=== PATIENT | female | born 1980 | race Caucasian/White ===

== ENCOUNTER → 2024-03-04 07:45 | Outpatient (REF) | payer OTHER, SELFPAY | LOC: EMG 07:45 | PROVIDERS: ATTENDING PHYSICIAN Nurse Practitioner | DX: M79.602 Pain in left arm (principal); R20.0 Anesthesia of skin | CPT/HCPCS: 95886; 95909 ==

== ENCOUNTER → 2024-06-26 12:47 | Outpatient (REF) | payer OTHER, SELFPAY | LOC: HWWDC 12:47 | PROVIDERS: ATTENDING PHYSICIAN Nurse Practitioner Adult Health; FAMILY PHYSICIAN Internal Medicine | DX: Z12.31 Encounter for screening mammogram for malignant neoplasm of breast (principal) | CPT/HCPCS: 77063; 77067 ==

== ENCOUNTER → 2024-12-11 16:58 | Outpatient (REF) | payer OTHER, SELFPAY | LOC: RAD 16:58 | PROVIDERS: ATTENDING PHYSICIAN Nurse Practitioner; FAMILY PHYSICIAN Internal Medicine | DX: L98.9 Disorder of the skin and subcutaneous tissue, unspecified (principal) | CPT/HCPCS: 93971 ==

== ENCOUNTER 2025-06-23 06:25 | Day surgery (SDC) | payer OTHER, SELFPAY | END 2025-06-23 14:52 | disposition home or self-care (01) | LOC: GI 06:25 | PROVIDERS: ATTENDING PHYSICIAN Internal Medicine Gastroenterology; FAMILY PHYSICIAN Internal Medicine | DX: K51.20 Ulcerative (chronic) proctitis without complications (principal); K57.30 Diverticulosis of large intestine without perforation or abscess without bleeding; K62.89 Other specified diseases of anus and rectum; K64.8 Other hemorrhoids | CPT/HCPCS: 45380; 88305 ==

== ENCOUNTER → 2025-07-09 14:48 | Outpatient (REF) | payer OTHER, SELFPAY | LOC: WDC 14:48 | PROVIDERS: ATTENDING PHYSICIAN Nurse Practitioner Adult Health; FAMILY PHYSICIAN Internal Medicine | DX: Z12.31 Encounter for screening mammogram for malignant neoplasm of breast (principal) | CPT/HCPCS: 77063; 77067 ==

== ENCOUNTER 2025-09-14 17:41 | Day surgery (SDC) | payer OTHER, SELFPAY ==
[2025-09-14] VITALS (11 sets, daily range): BP systolic 113–126; BP diastolic 77–92; BMI 25.7; BMI 24.4
--- NOTE | 2025-09-14 12:23 | ED.GENMED ---
History of Present Illness
<Roseann Perry ALGEBRA TEACHER - Last Filed: 09/14/25 17:11>
General
Chief Complaint: Abdominal Symptoms
Source: patient
Exam Limitations: none
Time Seen by Provider: 09/14/25 12:21
Nursing documentation reviewed up to this point in time: agreed with
History of Present Illness
History of Present Illness:
45-year-old female with history of colitis, proctitis, (per patient last colonoscopy 06/20 was 'clear.' ), uterine fibroids presents for abdominal pain. She states 2 nights ago abdominal pain was constant and from her navel to the right side of her
abdomen associated with a lot of gas and bloating, she did not sleep well that night due to her symptoms. She had several bowel movements that night and by yesterday morning the pain was better but her appetite was poor. She had a residual 'mild
pressure' discomfort in the right lower quadrant with intermittent fleeting sharp shooting pains. She had no significant pain all day yesterday just a mild pressure in the right lower quadrant. This morning she ate yogurt and the fleeting sharp
pains from her bellybutton to the right side of her abdomen started up again and she still has a 'pressure' in the right lower quadrant. She is currently menstruating, started 4 days ago. She denies fever or chills. Denies N/V/D.
Past History
<Roseann Perry ALGEBRA TEACHER - Last Filed: 09/14/25 17:11>
Past History
ED Past Medical History: Other (Migraines, colitis, uterine fibroids, proctitis)
Social History
Tobacco: Non-smoker
Personal: Single
Living: with family
Employment: Employed (Teacher)
Review of Systems
<Roseann Perry ALGEBRA TEACHER - Last Filed: 09/14/25 17:11>
Review of Systems
Allergies reviewed?: Yes
All Other Systems: ROS reviewed and negative except as documented in HPI and ROS
Respiratory: Reports other (Has had nasal stuffiness and mild URI with sinus headache for the past 3 days, headache is relieved with Tylenol.)
Musculoskeletal: Reports other (She is followed by rheumatology for 'random pains' workup negative so far and has no diagnosis yet)
Phy Exam
<Roseann Perry, ALGEBRA TEACHER - Last Filed: 09/14/25 17:11>
Physical Exam
Physical Exam:
GENERAL: No acute distress. A&Ox3.
CONSTITUTIONAL: Afebrile.
EYES: clear, conjunctivae normal
ENMT: moist mucus membranes, Pharynx nl
RESPIRATORY: Regular respirations, nonlabored, lungs clear.
CARDIOVASCULAR: Regular rate and rhythm, no murmurs, no rubs.
GI: Soft, tender to palpate right lower quadrant. Nondistended, normal BS
MUSCULOSKELETAL: Moves with ease. Well perfused.
SKIN: Warm, dry, pink
PSYCH: Normal mood and affect. Well kept, interactive and appropriate
NEUROLOGIC: Awake, alert and oriented. No focal neurological deficits
Course
<Roseann Perry, ALGEBRA TEACHER - Last Filed: 09/14/25 17:11>
Orders/Labs/Results
Orders:
Orders
09/14/25 12:19
Test Result ONCE
09/14/25 12:27
CMP [Comprehensive Metabolic Panel] Urgent
Complete Blood Count/With Diff Urgent
HCG, Serum Qualitative Screen Urgent
Lipase Urgent
09/14/25 12:37
CT Abd/pel W Iv And Oral Contr Urgent
Comment:
Reason For Exam: R abd pain. Hx colitis, proctitis, uterine fibroid
Iohexol [Omnipaque] See Protocol PO NOW STA
09/14/25 12:38
0.9% Sodium Chloride 1000 ml [Nss] 1,000 ml IV BOLUS
09/14/25 12:49
Urinalysis Reflex To Culture Urgent
Date Specimen was Collected: 09/14/25
Time Specimen was Collected: 12:40
Urine Microscopic Reflex Cult Urgent
09/14/25 16:18
Ketorolac [Toradol] 15 mg IV NOW STA
09/14/25 17:06
Admit/Transfer Patient As Directed
Co-Sign Provider:
Level of Care: Observation services
Assign to:: Medical/Surgical
Physician / Group: Juan
Diagnosis: Acute appendicitis
09/14/25 17:07
PRN Pain Medication Management As Directed
May give lesser potent ordered pain med per pt: Yes
preference::
Protocol:: Medication orders for pain may be administered in a
manner that supports deferring to patient preference
when the pt is:
- Requesting an ordered lesser potent pain medication.
Least to most potent pain medications are defined
as: acetaminophen < NSAID < tramadol < opioids
(morphine, oxycodone, hydromorphone).
- Requesting a lesser dose of the same medication IF
ORDERED.
- Requesting a less intrusive route of administration
if both routes are prescribed by the provider (PO <
IV).
09/14/25 17:10
Piperacillin/Tazo 3.375 Gram [Zosyn] 3.375 gram in 50 ml IV NOW
Abnormal Lab Results
09/14/25 09/14/25
12:27 12:49
Absolute Lymphs (auto) 0.0 L 10^3/uL
(1.2-3.4)
Neutrophils % 91.5 H %
(42.2-75.2)
Lymphocytes % 0.8 L %
(20.5-51.1)
Sodium 134 L mmol/L
(135-145)
Glucose 102 H mg/dl
(70-99)
Urine Ketones 1+ A
(Negative)
Ur Occult Blood Reflex 4+ A
(Negative)
Urine RBC >100 A /HPF
(0-2)
Urine Albumin (Reflex) 1+ A
(Neg - Trace)
09/14/25 12:27
09/14/25 12:27
Vital Signs
Initial and Last Documented VS:
Initial Vital Signs
Temp Pulse Resp BP Pulse Ox
99.7 F 114 18 121/85 96
09/14/25 11:28 09/14/25 11:28 09/14/25 11:28 09/14/25 11:28 09/14/25 11:28
Last Documented Vital Signs
Temp Pulse Resp BP Pulse Ox
98.8 F 108 18 124/82 98
09/14/25 16:32 09/14/25 16:32 09/14/25 16:32 09/14/25 16:32 09/14/25 16:32
<Juan Manuel Phillips, DO - Last Filed: 09/14/25 16:19>
Orders/Labs/Results
Orders:
Orders
09/14/25 12:19
Test Result ONCE
09/14/25 12:27
CMP [Comprehensive Metabolic Panel] Urgent
Complete Blood Count/With Diff Urgent
HCG, Serum Qualitative Screen Urgent
Lipase Urgent
09/14/25 12:37
CT Abd/pel W Iv And Oral Contr Urgent
Comment:
Reason For Exam: R abd pain. Hx colitis, proctitis, uterine fibroid
Iohexol [Omnipaque] See Protocol PO NOW STA
09/14/25 12:38
0.9% Sodium Chloride 1000 ml [Nss] 1,000 ml IV BOLUS
09/14/25 12:49
Urinalysis Reflex To Culture Urgent
Date Specimen was Collected: 09/14/25
Time Specimen was Collected: 12:40
Urine Microscopic Reflex Cult Urgent
09/14/25 16:18
Ketorolac [Toradol] 15 mg IV NOW STA
09/14/25 17:06
Admit/Transfer Patient As Directed
Co-Sign Provider:
Level of Care: Observation services
Assign to:: Medical/Surgical
Physician / Group: Juan
Diagnosis: Acute appendicitis
09/14/25 17:07
PRN Pain Medication Management As Directed
May give lesser potent ordered pain med per pt: Yes
preference::
Protocol:: Medication orders for pain may be administered in a
manner that supports deferring to patient preference
when the pt is:
- Requesting an ordered lesser potent pain medication.
Least to most potent pain medications are defined
as: acetaminophen < NSAID < tramadol < opioids
(morphine, oxycodone, hydromorphone).
- Requesting a lesser dose of the same medication IF
ORDERED.
- Requesting a less intrusive route of administration
if both routes are prescribed by the provider (PO <
IV).
09/14/25 17:10
Piperacillin/Tazo 3.375 Gram [Zosyn] 3.375 gram in 50 ml IV NOW
Abnormal Lab Results
09/14/25 09/14/25
12:27 12:49
Absolute Lymphs (auto) 0.0 L 10^3/uL
(1.2-3.4)
Neutrophils % 91.5 H %
(42.2-75.2)
Lymphocytes % 0.8 L %
(20.5-51.1)
Sodium 134 L mmol/L
(135-145)
Glucose 102 H mg/dl
(70-99)
Urine Ketones 1+ A
(Negative)
Ur Occult Blood Reflex 4+ A
(Negative)
Urine RBC >100 A /HPF
(0-2)
Urine Albumin (Reflex) 1+ A
(Neg - Trace)
09/14/25 12:27
09/14/25 12:27
Vital Signs
Initial and Last Documented VS:
Initial Vital Signs
Temp Pulse Resp BP Pulse Ox
99.7 F 114 18 121/85 96
09/14/25 11:28 09/14/25 11:28 09/14/25 11:28 09/14/25 11:28 09/14/25 11:28
Last Documented Vital Signs
Temp Pulse Resp BP Pulse Ox
98.8 F 108 18 124/82 98
09/14/25 16:32 09/14/25 16:32 09/14/25 16:32 09/14/25 16:32 09/14/25 16:32
<Roseann Perry, ALGEBRA TEACHER - Last Filed: 09/14/25 17:11>
MDM/Problems Addressed
Differential Diagnosis Includes:
Colitis, diverticulitis, appendicitis, uterine fibroid, ovarian cyst
MDM/Problems Addressed:
45-year-old female with history of colitis, proctitis, (per patient last colonoscopy 06/20 was 'clear.' ), uterine fibroids presents for abdominal pain. She states 2 nights ago abdominal pain was constant and from her navel to the right side of her
abdomen associated with a lot of gas and bloating, she did not sleep well that night due to her symptoms. She had several bowel movements that night and by yesterday morning the pain was better but her appetite was poor. She had a residual 'mild
pressure' discomfort in the right lower quadrant with intermittent fleeting sharp shooting pains. She had no significant pain all day yesterday just a mild pressure in the right lower quadrant. This morning she ate yogurt and the fleeting sharp
pains from her bellybutton to the right side of her abdomen started up again and she still has a 'pressure' in the right lower quadrant. She is currently menstruating, started 4 days ago. She denies fever or chills. Denies N/V/D.
Afebrile, NAD, mild tenderness right lower quadrant. No rebound, no guarding
CBC normal
CMP normal
hCG negative
UA without infection but greater than 100 RBCs, she is currently menstruating.
4:00 PM: CAT scan abdomen pelvis radiology report reviewed: Acute appendicitis,, No evidence of perforation or periappendiceal abscess
Pt notified, remains comfortable.
Consulted General Surgery Dr. Martinez
Dr. Phillips in to see pt. She c/o headache, Toradol ordered.
<Roseann Perry, ALGEBRA TEACHER - Last Filed: 09/14/25 17:11>
*Pulse Oximetry
SaO2: 96
Oxygen Mode of Delivery: Room air
Patient hypoxic: no
*Critical Care Note
Total Time (30-74mins, 75-104mins- exclusive of procedures): Not Applicable
ED Attending Note
<Roseann Perry, ALGEBRA TEACHER - Last Filed: 09/14/25 17:11>
-
Portions of this chart may have been created with voice recognition software.� Occasional wrong word or��sound alike� substitutions may have occurred due to the inherent limitations of voice recognition software.
<Juan Manuel Phillips, DO - Last Filed: 09/14/25 16:19>
ED Attending Note
Patient seen and examined by attending physician: Yes
I performed the substantive portion of visit, reviewed & personally made and approve the management plan that is documented in note by myself or PACO.: Yes
ED Attending Note:
I evaluated patient at bedside. One of her main symptoms currently is the headache. She had low-grade temperature recently and took Tylenol. Will give a one-time dose of Toradol. She does have a history of ulcerative colitis.
Discharge Plan
Departure
Patient Disposition: Admit
Date of Disposition: 09/14/25
Time of Disposition: 16:08
Admit to: Med/Surg
Presentation/result/management discussed w/ accepting MD/DO: Juan
Condition: Fair
Discharge Problem:
Acute appendicitis
Prescriptions:
No Action
cetirizine 10 mg Tablet
10 mg PO DAILY
acetaminophen 500 mg Tablet
1,000 mg PO DAILYPRN PRN (Reason: mild pain)
Benefiber (guar gum) Packet
2 tbsp PO DAILY
ascorbic acid (vitamin C) 500 mg Tablet
500 mg PO DAILY
zinc gluconate 50 mg Tablet
50 mg PO DAILYPRN PRN (Reason: cold symptoms)
norethindrone acetate 5 mg tablet
10 mg PO DAILY
Rx Instructions:
take for the 1st 14 days of the month
Culturelle 10 billion cell Capsule
1 cap PO BID
mesalamine 1.2 gram tablet,delayed release (DR/EC)
2.4 g PO DAILY
guaifenesin [Mucinex] 600 mg Tablet Extended Release 12hr
600 mg PO DAILYPRN PRN (Reason: congestion)
vitamin D3-vitamin K2 (MK4) 1,000-100 unit-mcg Tablet
1 tab PO DAILY
riboflavin (vitamin B2) 400 mg Tablet
400 mg PO Q48H
turmeric 400 mg Capsule
400 mg PO DAILY
Zeposia 0.92 mg capsule
0.92 mg PO DAILY
iron bisglycinate chelate 28 mg iron Capsule
28 mg PO MOWEFR
Referrals:
Aniya Diaz MD [Family Provider, Internal Medicine]
Interventions
Interventions:
*Risk Screen - Suicide Last Done: 09/14/25 11:28
*General Assessment Last Done: 09/14/25 11:28
*Neglect/Abuse Screening Last Done: 09/14/25 11:28
*ED- Fall Risk Assessment Last Done: 09/14/25 12:43
*ED COVID-19 Vaccine History Last Done: 09/14/25 12:43
*ED Influenza Vaccine History Last Done: 09/14/25 12:43
SY-Hzitov-Bdlpnzhmec Assessment Last Done: 09/14/25 12:43
Discharge Date and Time
Print Language: GERMAN
[2025-09-14 12:38] LABS: Hematocrit 39.3 % (37.0-47.0); Hemoglobin 13.2 g/dL (12.0-16.0); Mean Corp Hgb Conc. 33.6 g/dL (33.0-37.0); Mean Corpuscular Volume 87.5 fL (81.0-99.0); Nucleated Red Blood Cells % 0 %; Platelet Count 300 10^3/uL (130-400); Red Cell Dist. Width 13.6 % (11.5-14.5)
[2025-09-14] MEDS: NSS 1000 IV ×2 (12:48→18:42)
[2025-09-14 12:59] LABS: Urine Character Clear (Clear)
[2025-09-14] MEDS: OMNIPAQUE 50 ML PO (13:00)
[2025-09-14 13:01] LABS: HCG, Serum Qualitative Screen Negative
[2025-09-14 13:09] LABS: ALT (SGPT) 19 U/L (0-35); AST (SGOT) 20 U/L (14-36); Albumin 4.2 g/dl (3.5-5.0); Alkaline Phosphatase 45 U/L (38-126); Blood Urea Nitrogen 12 mg/dl (7-17); Calcium 9.3 mg/dl (8.4-10.2); Carbon Dioxide 23 mmol/L (22-30); Chloride 105 mmol/L (98-107); Estimated Creatinine Clearance 82 ml/min; Glucose 102 mg/dl (70-99); Lipase 72 U/L (23-300); Potassium 4.4 mmol/L (3.5-5.1); Sodium 134 mmol/L (135-145); Total Protein 7.1 g/dl (6.3-8.2); eGFR > 60.00
[2025-09-14 13:27] LABS: Urine Squamous Cell >30 /LPF (Few)
[2025-09-14 13:28] LABS: Urine Red Blood Cell >100 /HPF (0-2); Urine White Cell 0-2 /HPF (0-5)
[2025-09-14] MEDS: TORADOL 15 MG IV (16:28)
--- NOTE | 2025-09-14 16:55 | HPS.HSE ---
Family Physician
-
Family Physician: Aniya Daiz
Chief Complaint
-
RLQ pain
History of Present Illness
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 This morning, the pain had stopped and she tried eating
breakfast with return of symptoms but this time more sharp and radiating to her RLQ with nausea. Her pain persisted causing her to present to the ED for evaluation. She notes bloating but denies bowel or bladder changes. She notes low grade fevers
of 99.9 at home. She notes recent congestive symtpoms/URI and has been taking decongestants. On exam, she has RLQ tenderness with +Rovsing's.
Medical History
Past Medical History
Past Medical History: Reports Other (ulcerative proctitis, fibroid uterus, migraines)
Past Surgical History: Reports Other (colonoscopies)
Social History
Tobacco: Non-smoker
Alcohol: None
Family History
Family History: Not pertinent
Allergies / Home Medications
Allergies reflects when Allergies were last updated in [facility].
Home Medications with original date entered in [facility]
Allergy/Medication List:
Patient Allergies
Allergy/AdvReac Type Severity Reaction Status Date / Time
sulfamethoxazole (From Allergy Rash Verified 09/14/25 11:28
Bactrim)
trimethoprim (From Bactrim) Allergy Rash Verified 09/14/25 11:28
�Medication �Instructions �Recorded �Confirmed �Type
Lactobacillus rhamnosus GG 10 1 cap PO BID 09/14/25 09/14/25 History
billion cell capsule (Culturelle)
acetaminophen 500 mg tablet 1,000 mg PO DAILYPRN PRN mild pain 09/14/25 09/14/25 History
ascorbic acid (vitamin C) 500 mg 500 mg PO DAILY 09/14/25 09/14/25 History
tablet
cetirizine 10 mg tablet 10 mg PO DAILY 09/14/25 09/14/25 History
cholecalciferol (vit D3) 1,000 1 tab PO DAILY 09/14/25 09/14/25 History
unit-vitamin K2 (MK4) 100 mcg
tablet
guaifenesin 600 mg tablet, 600 mg PO DAILYPRN PRN congestion 09/14/25 09/14/25 History
extended release 12 hr (Mucinex)
guar gum 2 tbsp PO DAILY 09/14/25 09/14/25 History
iron bisglycinate chelate 28 mg PO MOWEFR 09/14/25 09/14/25 History
mesalamine 1.2 gram tablet,delayed 2.4 g PO DAILY 09/14/25 09/14/25 History
release
norethindrone acetate 5 mg tablet 10 mg PO DAILY 09/14/25 09/14/25 History
ozanimod 0.92 mg capsule (Zeposia) 0.92 mg PO DAILY 09/14/25 09/14/25 History
riboflavin (vitamin B2) 400 mg 400 mg PO Q48H 09/14/25 09/14/25 History
tablet
turmeric 400 mg capsule 400 mg PO DAILY 09/14/25 09/14/25 History
zinc gluconate 50 mg tablet 50 mg PO DAILYPRN PRN cold symptoms 09/14/25 09/14/25 History
Review of Systems
-
History Source: Patient and Family
A 12 point ROS was completed and negative except as noted: Yes
Physical Exam
Vital Signs
Vital Signs
Temp Pulse Resp BP Pulse Ox
98.8 F 108 18 124/82 98
09/14/25 16:32 09/14/25 16:32 09/14/25 16:32 09/14/25 16:32 09/14/25 16:32
Physical Exam
General: Well Developed, Well Nourished and No Apparent Distress
HEENT: NormoCephalic and Moist mucous membranes
Respiratory: Non Labored Respirations
GI: Soft and Tender (RLQ, +rovsing's)
Skin: Warm and Dry
Neuro: Awake, Alert and AO x 3
Psych: Calm
Laboratory Results
-
09/14/25 12:27
09/14/25 12:27
Laboratory Results
Total Bilirubin 0.8 mg/dl (0.2-1.3) 09/14/25 12:27
AST 20 U/L (14-36) 09/14/25 12:27
ALT 19 U/L (0-35) 09/14/25 12:27
Alkaline Phosphatase 45 U/L (38-126) 09/14/25 12:
Lipase 72 U/L (23-300) 09/14/25 12:27
Data Reviewed
-
CT Scan: Image Personally Visualized and interpreted, Report Reviewed by me, Discussed with Physician, Discussed with Nurse, Discussed with Patient and Discussed with Family
Lab Data: Labs Reviewed by me, Discussed with Physician and Discussed with Patient
Old Records: Reviewed
Impression/Plan
-
IMPRESSION:
45 yo female presenting with intermittent mid abdominal pain x2 days now with focal RLQ pain since this am with nausea. Afebrile. VSS. Normal total WBCs with left shift. Pain improving s/p Toradol in the ED.
Discussed management of appendicitis with patient and mother at bedside; nonoperative vs operative. She would like to pursue surgical intervention.
PLAN:
Start IV abx with Zosyn q6h
IVF with NSS at 80ml/hr
Keep NPO
Will plan OR in the am for laparoscopic appendectomy
SCDs for VTE ppx
[2025-09-14] MEDS: ZOSYN 50 IV ×2 (17:29→22:43)
--- NOTE | 2025-09-14 17:58 | EDCM ---
CM reviewed chart and met with pt bedside in ED. Lives with her mother in split level home, no STEFANI.
Independent in ADLs, personal care and ambulation at baseline, no assistive devices, no DME.
Confirms prescription voverage.
OBS form reviewed and signed, copy given to pt.
No hx VN or SNF
PCP: Aniya Diaz
Pharmacy: [address]
Anticipate discharge home, no needs. CM will continue to follow for any discharge planning needs.
--- NOTE | 2025-09-14 18:20 | EDRN ---
Patient taken to room 2115 on stretcher by ophthalmic technician apprentice.
[2025-09-14] MEDS: OCEAN, SALINE MIST 2 SPRAYS NASAL (21:31)
[2025-09-15] VITALS (8 sets, daily range): BP systolic 107–117; BP diastolic 73–80
[2025-09-15] MEDS: ZOSYN 50 IV (04:34)
[2025-09-15] MEDS: NSS 1000 IV (06:06)
--- NOTE | 2025-09-15 09:26 | CM ---
Reviewed the chart notes. Patient for OR today. CM continues to be available to patient/family and is monitoring medical plan for needs at discharge.
Plan: Discharge plans will depend on the patient's progress.
--- NOTE | 2025-09-15 10:12 | CON.GI ---
Consultation
-
Date/Time Consultation Requested: 8:40 09/15/25
Date/Time Consultation Performed: 10:00 09/15/25
Reason for Consultation: UC management post-op
Medical History
Chief Complaint / HPI
Chief Complaint: appendicitis
History of Present Illness:
45yoF PMH UC of cecum and proctitis dx 04/2022 last colonoscopy 05/2025 presenting abdominal bloating and intermittent RLQ pain for the last 3 days.
Pt reports bloating and pain starting Monday09/12/25 different from her prior UC flare sensation. She describes general cramping that became pressure in the RLQ with sharp,shooting pain. She reports transient resolution of symptoms Monday with
commencement of cramping Monday once again, prompting her to come to the ED. Upon presentation, she was found to have appendicitis on CT, started on abx, surgery consulted. She was offered medical vs surgical therapy, opting for surgical
intervention. Surgery plans on removing her appendix today, consulting GI for management of mesalamine and zeposia post-op.
Pt denies nausea, vomiting, hematemesis, hematochezia, melena. Pt reports feeling at baseline until Monday. No recent weight loss, chills, low grade fever at home 99.9. No recent food triggers. Pt reports regular BM 2-3 per day. Monday she reports
4-5 BM, increase from baseline.
Of note, pt also reports sore throat, cough, and sinus pressure since Monday.
Pt diagnosed with UC 04/2022 found in cecum and rectum, followed by Dr. Felix. She initially was diagnosed due to increased flatulence, rectal bleeding, increased frequency and urgency of BM with loosening of stool. She was started on mesalamine 4 pills
a day and suppository transitioned to enema. She had recurrence of loose bowels and inflammation, prompting starting zeposia 07/2023. Her UC is well controlled on 2 pills mesalamine and zeposia daily. Hx iron deficiency anemia, currently stable on
oral iron twice a week. She is aware of triggers including corn, dairy, peas and reports no consumption of noraml food triggers recently.
Past Medical History
Past Medical History: Other (ulcerative colitis controlled on mesalamine and zeposia, uterine fibroids)
Past Surgical History: Other (colonoscopy 04/2022, 05/2025, camera endoscopy 08/2022)
Social History
Tobacco: Non-Smoker
Alcohol: Occasional
Drug: None
Living: With Family (with mother)
Employment: Employed (teacher)
Family History
Family History: Other (uncle UC, father and uncle colon perforations secondary to diverticulitis, grandmother colon cancer)
Allergies / Home Medications
Allergy/AdvReac Type Severity Reaction Status Date / Time
sulfamethoxazole (From Allergy Rash Verified 09/14/25 11:28
Bactrim)
trimethoprim (From Bactrim) Allergy Rash Verified 09/14/25 11:28
�Medication �Instructions �Recorded
Lactobacillus rhamnosus GG 10 1 cap PO BID 09/14/25
billion cell capsule (Culturelle)
acetaminophen 500 mg tablet 1,000 mg PO DAILYPRN PRN mild pain 09/14/25
ascorbic acid (vitamin C) 500 mg 500 mg PO DAILY 09/14/25
tablet
cetirizine 10 mg tablet 10 mg PO DAILY 09/14/25
cholecalciferol (vit D3) 1,000 1 tab PO DAILY 09/14/25
unit-vitamin K2 (MK4) 100 mcg
tablet
guaifenesin 600 mg tablet, 600 mg PO DAILYPRN PRN congestion 09/14/25
extended release 12 hr (Mucinex)
guar gum 2 tbsp PO DAILY 09/14/25
iron bisglycinate chelate 28 mg PO MOWEFR 09/14/25
mesalamine 1.2 gram tablet,delayed 2.4 g PO DAILY 09/14/25
release
norethindrone acetate 5 mg tablet 10 mg PO DAILY 09/14/25
ozanimod 0.92 mg capsule (Zeposia) 0.92 mg PO DAILY 09/14/25
riboflavin (vitamin B2) 400 mg 400 mg PO Q48H 09/14/25
tablet
turmeric 400 mg capsule 400 mg PO DAILY 09/14/25
zinc gluconate 50 mg tablet 50 mg PO DAILYPRN PRN cold symptoms 09/14/25
Review of Systems
-
History Source: Patient
All other systems: A 12 pt ROS was Negative except as stated above in HPI
Constitutional: Denies Weight Loss
EENT: Reports Sore Throat; Denies Mouth Pain
Respiratory: Reports Cough
Cardiac: Denies Chest Pain
Abdomen/GI: Reports Abdominal Pain (resolved currently) and Pain (waxing/waning, currently none); Denies Nausea, Vomiting, Diarrhea, Constipated, Bloody Stools or Black Stools
: Reports No Symptoms
Musculoskeletal: Reports No Symptoms
Skin: Reports No Symptoms
Neurological: Reports No Symptoms
Endocrine: Reports No Symptoms
Hematologic/Lymphatic: Reports No Symptoms
Vital Signs
Temp Pulse Resp BP Pulse Ox
98.4 F 85 16 117/79 99
09/15/25 07:35 09/15/25 07:35 09/15/25 07:35 09/15/25 07:35 09/15/25 07:35
Physical Exam
Exam
General: Well Developed, Well Nourished, No Apparent Distress and Comfortable
HEENT: Normocephalic, Anicteric, Moist Mucous Membranes and Atraumatic
Respiratory: Non Labored Respirations
Cardiac: Negative Peripheral Edema
Breast: Deferred by me
GI: Soft and Non Tender (mild reported tenderness in RLQ to deep palpation, nonperitonitic, no guarding or rebound)
Rectal: Deferred by Provider
Musculoskeletal: No Edema
Skin: Warm and Dry
Neuro: AO x 3 and Nonfocal/Grossly Intact
Psych: Calm
Results
WBC 5.1 10^3/uL (4.8-10.8) 09/14/25 12:27
Hgb 13.2 g/dL (12.0-16.0) 09/14/25 12:27
Hct 39.3 % (37.0-47.0) 09/14/25 12:27
MCV 87.5 fL (81.0-99.0) 09/14/25 12:27
Plt Count 300 10^3/uL (130-400) 09/14/25 12:27
Absolute Neuts (auto) 4.7 10^3/uL (1.4-6.5) 09/14/25 12:27
Sodium 134 mmol/L (135-145) L 09/14/25 12:
Potassium 4.4 mmol/L (3.5-5.1) 09/14/25 12:
Chloride 105 mmol/L (98-107) 09/14/25 12:
Carbon Dioxide 23 mmol/L (22-30) 09/14/25 12:27
BUN 12 mg/dl (7-17) 09/14/25 12:27
Creatinine 0.7 mg/dL (0.6-1.0) 09/14/25 12:27
Calcium 9.3 mg/dl (8.4-10.2) 09/14/25 12:27
Total Bilirubin 0.8 mg/dl (0.2-1.3) 09/14/25 12:
AST 20 U/L (14-36) 09/14/25 12:27
ALT 19 U/L (0-35) 09/14/25 12:27
Alkaline Phosphatase 45 U/L (38-126) 09/14/25 12:27
Lipase 72 U/L (23-300) 09/14/25 12:27
Diagnostic Image Results:
Prior GI Procedures: Capsule endoscopy: small bowel was normal. No findings of SB dx.
EGD:
Colonoscopy: 05/2025
Impression:
- The examined portion of the ileum was normal.
- Internal hemorrhoids.
- Diverticulosis in the descending colon and in the sigmoid colon.
- The examination was otherwise normal.
- Mildly altered vascular mucosa in the rectum. Biopsied.
06/2022
Impression: - Localized moderate inflammation was found in the
distal rectum. Biopsied.
- Localized moderate inflammation was found in the
cecum. Biopsied.
- The examined portion of the ileum was normal.
Biopsied.
- The examination was otherwise normal.
Assessment / Plan
-
45yoF PMH UC diagnosed 04/2022 in cecum and rectum stable on mesalamine and zeposia last colonoscopy 05/2025 presenting with RLQ cramping and pressure with evidence of appendicitis on CT.
Pt had colonoscopy 05/2025 with stable UC on current medication regimen mesalamine and zeposia. She noted symptoms different than usual UC flare beginning monday with worsening Monday, prompting her presentation to ED. Dr. José plans to take pt to
OR to remove appendix. Continuing discussion among providers as to timeline of restarting immunomodulating medication, zeposia. Hold medication in immediate post operative period.
AFVSS. No leukocytosis, electrolytes WNL. LFTs stable.
#appendicitis
#ulcerative colitis
- known cecal and rectal inflammation in past. Currently stable per last colonoscopy.
- Await pathology of appendix for confirmed appendicitis vs UC flare in setting of hx cecal involvement
- Hold mesalamine and zeposia pending recommendations from Dr. Felix and Dr. Meneses for restarting
Attending physicians still discussing timeline of restarting UC medications mesalamine and zeposia.
-
-
Thank you for consultation and allowing me to participate in the patient's care. Please call the vp construction GI physician during the after hours with any questions or concerns.
--- NOTE | 2025-09-15 10:22 | W.SUR.PREOP ---
Pre-Operative Surgical Note
-
I have examined this patient prior to the performance of the scheduled procedure.
The patient's condition is unchanged from the time of the current History and
Physical and the patient is able to undergo the scheduled procedure.
--- NOTE | 2025-09-15 11:41 | W.IMMPOSTOP ---
Surgical Immed Post Op Note
-
Primary Surgeon: Nikhil José MD
Assisting Surgeon: None
Pre-op Diagnosis: Acute appendicitis
Post-op Diagnosis: Same
Procedure Performed: Laparoscopic appendectomy
Anesthesia Type: General
Specimen / Cultures: Appendix
Estimated Blood Loss: 3 cc
Complications: None
Operative Findings: Acutely inflamed, nonsuppurative, nonperforated appendicitis. Base slightly thickened so it was divided using a 45 rojo load on an Endo BARBARA stapler.
POST OP PLAN:
Imaging: None
Labs: Routine AM
Diet: Advance to Regular as tolerated
Analgesia: Tylenol 650mg q6 Trev, Dilaudid 0.5mg q2h PRN
Neuro/vascular checks: Per unit protocol
AC/AP: Hold Therapeutic AC, Ok for DVT PPx
Activity: Ad Linette
Wound/Incisions/Drains: Routine
Abx: 4 days of antibiotics.
Dispo: RNF, anticipate discharge today versus tomorrow pending clinical course. Would hold biologic for 2 weeks before resuming. GI following.
--- NOTE | 2025-09-15 11:43 | OR.RPT ---
Operative Report
Operative Report
Patient Name: Sallie Hill
: 1980
Date of Operation: 09/15/2025
Preoperative Diagnosis: Acute Appendicitis
Postoperative Diagnosis: Same
Procedure(s):
Laparoscopic Appendectomy
Surgeon(s):
Dr. José
Distributor Of Directories(s):
BAKARI Mast
CARON Benson
Anesthesia: General
Estimated Blood Loss: 3 cc
Urine Output: None
Drains/Lines/Implants: None
Specimens:
1. Appendix
HPI/Surgical Indications:
This is a 45-year-old female with a history of UC who presents with a 1 day history of abdominal pain. Exam, labs and imaging are consistent with acute appendicitis. Risks/Benefits/Alternatives were discussed at length, and the patient agreed to
proceed with surgery.
Operative Findings: Acutely inflamed, nonsuppurative, nonperforated appendicitis. Base slightly thickened so it was divided using a 45 milian load on an Endo BARBARA stapler.
Procedure Description:
The patient was placed in the supine position, with the left arm tucked, and general anesthesia was induced. The abdomen was prepared and draped in a sterile fashion so as to expose the entire abdomen. A surgical time out was taken. Abdominal access
was obtained with a left subcostal Veress which required a single pass followed by a left lower quadrant 5 mm Optiview entry. After confirming no injury on entrance, two additional 5mm ports were placed in the suprapubic area just off midline and
in the infraumbilical space. The patient was placed in Trendelenberg with the right slightly up . The appendix was identified and a window was created in the mesoappendix. The appendix was inflamed but not perforated. Using a laparoscopic bipolar
energy device, the meso appendix was divided. The base of the appendix appeared thickened so the umbilical 5 mm port was upsized to a 12 and was ligated/divided using a 45 Milian Endo BARBARA. The appendix was placed in a specimen retrieval bag. Hemostasis
was confirmed and the ports were removed under visualization. The specimen was passed off the field. The umbilical port was closed with a [id number] 0-PDS and the skin for all three ports was closed with interrupted monocryls and covered with
dermabond. The patient was awoken from anesthesia in good condition and transported to the recovery area.
I was the attending physician and performed the procedure with assistance of the PA and student above. The assistance of BAKARI Mast was required due to the complexity of the procedure. During the procedure Marianne assisted with port placement,
instrument and tissue handling as well as closure of the wound. I was present for all portions of the case, excluding skin closure.
Nikhil José MD
[2025-09-15] MEDS: ZOSYN IV (12:09)
--- NOTE | 2025-09-15 12:53 | PTCARENOTE ---
pt transported to the OR @ 1025 via bed with volunteers. pt returned to 2S room 2116 via bed @1230 with incident.
3 lap sites, 1 puncture site NOLA w/glue across abdomen. ice bag in place. ice chips at bedside. call ulloa in reach. pt denies nausea at present. IVF infusing. care ongoing.
== END 2025-09-15 18:45 | disposition home or self-care (01) ==
LOC: SDS 17:41
PROVIDERS: Registered Nurse; CONSULT PHYSICIAN Internal Medicine Gastroenterology; EMERGENCY PHYSICIAN Emergency Medicine; FAMILY PHYSICIAN Internal Medicine
DX: K35.80 Unspecified acute appendicitis (principal); K64.8 Other hemorrhoids; K57.30 Diverticulosis of large intestine without perforation or abscess without bleeding; D25.9 Leiomyoma of uterus, unspecified
CPT/HCPCS: 44970; 74177; 80053; 81003; 81015; 83690; 84703; 85025; 88304; 96361; 96374; 99285; G0378; Q9967

== ENCOUNTER → 2025-11-24 10:49 | Outpatient (REF) | payer OTHER, SELFPAY | LOC: EMG 10:49 | PROVIDERS: ATTENDING PHYSICIAN Nurse Practitioner; FAMILY PHYSICIAN Internal Medicine | DX: G56.01 Carpal tunnel syndrome, right upper limb (principal); R20.0 Anesthesia of skin | CPT/HCPCS: 95886; 95909 ==